=== PATIENT | male | born 1970 | race Caucasian/White ===

== ENCOUNTER → 2021-06-29 09:36 | Outpatient (BNVA) | payer OTHER, SELFPAY | PROVIDERS: Visit Provider Nurse Practitioner Family | DX: Z20.822 Contact with and (suspected) exposure to COVID-19 (principal) | CPT/HCPCS: 87635 ==

== ENCOUNTER → 2021-09-23 08:17 | Outpatient (BNVA) | payer OTHER, SELFPAY | PROVIDERS: Visit Provider Surgery | DX: Z20.822 Contact with and (suspected) exposure to COVID-19 (principal) | CPT/HCPCS: 87635 ==

== ENCOUNTER 2021-09-28 07:47 | Day surgery (SDC) | payer SELFPAY ==
[2021-09-23 12:03] VITALS: BMI 33.5
--- NOTE | 2021-09-28 08:51 | P.ANESASSM_ITS ---
Pre-Anesthetic Assessment Height/Weight: Height 1.8 m Weight 108.862 kg Preop Diagnosis: diagnostic Operation Date: 09/28/21 09:15 Proposed Procedures p Colonoscopy 43569 R19.5(Not Applicable) - Osvaldo Alba MD Familial anesthetic complications: none Was Beta Ramona taken within 24 hours: N/A Was Clonidine taken within 24 hours: N/A Last intake: > 8hrs Social Tobacco Exam alert, oriented x 3, clear to auscultation bilaterally and regular rate & rhythm Airway Mallampati: Class III Dentition: other (missing) Pulmonary None reported CV/HEM None reported None reported Hepatic None reported GI None reported Musc/skel None reported Neuropsych None reported Anesthetic Plan ASA status: 2 Anesthesia: MAC Medications/Allergies Home Medications Medication Instructions Recorded Confirmed Last Taken Type No Known Home Medications 06/29/21 09/23/21 Unknown History Allergies Allergy/AdvReac Type Severity Reaction Status Date / Time No Known Allergies Allergy Verified 09/23/21 12:02 [facility] Anesthesia Medical History (Updated 09/05/21 @ 09:51 by Osvaldo Alba MD) COVID-19 Social History Smoking and tobacco status: current every day smoker Data Anesthesia Cardiac Studies: No Data to Display
[2021-09-28 09:29] VITALS: BP 158/96; PULSE 72; RESP 18; TEMP 36.2; O2SAT 98
[2021-09-28] MEDS: sodium chloride 0.9% 1,000 ML 30 ML IV (09:31)
--- NOTE | 2021-09-28 11:37 | W.PM.OPSFHP ---
Same Day Surgery H&P Indication for Procedure/HPI DATE OF PROCEDURE: September 28, 2021 CHIEF COMPLAINT/INDICATIONFOR SURGICAL PROCEDURE: screening PREOP DIAGNOSIS: diagnostic PLANNED PROCEDURE: Operation Date: 09/28/21 09:15 Proposed Procedures p Colonoscopy 51506 R19.5(Not Applicable) - Osvaldo Alba MD Medications/Allergies* Home Medications Medication Instructions Recorded Confirmed Type No Known Home Medications 06/29/21 09/28/21 History Allergies/Adverse Reactions Allergy/AdvReac Type Severity Reaction Status Date / Time No Known Allergies Allergy Verified 09/28/21 09:28 Current Medications: Generic Name Dose Route Start Last Admin Trade Name Freq PRN Reason Stop Dose Admin Sodium Chloride 1,000 mls @ 30 mls/hr 09/28/21 08:30 09/28/21 09:31 Sodium Chloride 0.9% IV 09/29/21 08:29 30 mls/hr .Q24H EULALIA Administration Pertinent History/Comorbid Conditions* Medical History (Updated 09/05/21 @ 09:51 by Osvaldo Alba MD) COVID-19 Social History Smoking and tobacco status: current every day smoker Pertinent Exam Findings alert, oriented x 3 and regular rate & rhythm Recommendations Surgery/Procedure today Coding Level of Care Code Acute Medical Delivery Technician for Chg Hunter
[2021-09-28 12:21] VITALS: BP 104/67; PULSE 63; RESP 20; TEMP 36.2; O2SAT 96
[2021-09-28 12:36] VITALS: BP 123/84; PULSE 66; RESP 18; TEMP 36.2; O2SAT 100
--- NOTE | 2021-09-28 12:57 | ANE.PACU2 ---
Inpatient post-anesthesia follow up: Airway intact: Yes Vital signs: Temperature 97.1 F Pulse Rate 66 Respiratory Rate 18 Blood Pressure 123/84 Pulse Oximetry 100 Oxygen Delivery Me thod Room Air Oxygen Flow Rate 3 Fraction of Inspir ed Oxygen Hydration adequate: Yes Nausea and vomiting: No Pain level: 1 Mental status: Baseline
== END 2021-09-28 12:59 | disposition home or self-care (01) ==
PROVIDERS: PCP Nurse Practitioner Family; Visit Provider Surgery
PROC: 0DJD8ZZ Inspection of Lower Intestinal Tract, Via Natural or Artificial Opening Endoscopic (ICD-10-PCS; CPT 45378; principal; 2021-09-28 09:15)
DX: R19.5 Other fecal abnormalities (principal); D12.2 Benign neoplasm of ascending colon; D12.4 Benign neoplasm of descending colon; D12.8 Benign neoplasm of rectum; Z86.16 Personal history of COVID-19; F17.210 Nicotine dependence, cigarettes, uncomplicated
CPT/HCPCS: 45380; 45385; 88305; J2704; J7030